=== PATIENT | male | born 1995 | race American Indian/Alaskan Native ===

== ENCOUNTER 2018-03-03 07:16 | Emergency (ER) | payer SELFPAY ==
[2018-03-03] MEDS ORDERED: TORADOL IV ONE (08:05)
[2018-03-03] MEDS ORDERED: NACL 0.9% 1000 ML 1,000 ML IV ONE (08:05)
[2018-03-03 08:08] LABS: Basophils # (Auto) 0.1 K/mm3 (0.0-0.1); Basophils % (Auto) 0.4 % (0.0-1.8); Eosinophils % (Auto) 0.3 % (0.0-4.3); Hematocrit 48.5 % (35.5-45.6); Hemoglobin 16.8 gm/dl (11.8-15.2); Lymphocytes % (Auto) 12.8 % (13.4-35.0); Mean Corpuscular HGB Conc 35 % (32-34); Mean Corpuscular Hemoglobin 28 pg (28-32); Mean Corpuscular Volume 82 fl (84-94); Monocytes # (Auto) 0.8 K/mm3 (0.0-0.8); Monocytes % (Auto) 5.2 % (0.0-7.3); Platelet Count 416 K/mm3 (140-440); Red Blood Count 5.92 M/mm3 (3.65-5.03); Red Cell Distribution Width 13.5 % (13.2-15.2)
--- NOTE | 2018-03-03 08:08 | Emergency Department Report ---
Chief Complaint: Abdominal Pain Stated Complaint: STOMACH PAINS Time Seen by Provider: 03/03/18 08:07 - HPI History of Present Illness: This is a 22-year-old male here report that he is having abdominal pain on and off for a while but he has not gone to the doctor. He could not give me a specific data follow along his been having the pain but reports the pain is crampy and it comes and goes. Patient reports that he has been having vomiting and diarrhea 3 days. He said he is able to care erich dean and saltine down. He said he has felt pain in often to his entire stomach. Patient said he can barely move and when I asked him where the pain he cannot pinpoint he is basically pointing to all of his abdomen. He reports that he has chills but no fever. No medication taken today. Pain is intermittent. He denies any medical problems and report he has not been to a doctor in years. Denies any blood in his stool. Denies any blood in his vomit. Denies any chest pain or shortness of breath. Denies any urinary burning, frequency or urgency. - ROS Review of Systems: Positive abdominal pain, positive diarrhea, positive nausea and vomiting and. Positive chills. Negative hematochezia, negative hematemesis. Negative urinary burning, frequency or urgency. Negative chest pain or shortness of breath. Negative hematuria, negative sore throat, negative headache - Exam Vital Signs: Vital Signs 03/03/18 07:23 Temperature 98.4 F Pulse Rate 108 H Respiratory 16 Rate Blood Pressure 153/95 O2 Sat by Pulse 99 Oximetry Physical Exam: Gen.: 22-year-old male well-nourished well-developed in no acute distress. Patient is nontoxic in appearance. abdomen: Patient reports tenderness to palpation around his periumbilical area. No guarding or rebound tenderness. No acute abdomen. Abdomen is soft. Normal bowel sounds. No CVA tenderness Lungs: clear to Auscultated bilaterally, no rhonchi wheezes or rales CV: Patient tachycardic at 108, regular MSE screening note: Focused history and physical exam performed. Due to findings the following was ordered: ED Medical Decision Making - Lab Data Result diagrams: 03/03/18 07:45 - Medical Decision Making This is a 22-year-old male here reports that he is having abdominal pain, nausea vomiting and diarrhea over a period to time but he is having vomiting and diarrhea over 3 days consistently. He is also reporting chills. Patient does not have a primary care Assessment/plan 1: Abdominal pain-patient given Toradol 30 mg IV. CBC with elevated white count and other labs are pending. Patient for CT scan of the abdomen and pelvis with IV contrast. 2: Nausea vomiting and diarrhea-patient started on IV fluid normal saline 1 L, Zofran IV. Patient is stable, vital signs stable except she is tachycardic at 108, afebrile. Patient to be seen by Yesenia I spoke with Dr. Slade regarding patient labs and his presentation on my physical findings ED Disposition for MSE Condition: Stable Referrals: PRIMARY CARE, [Primary Care Provider] - 3-5 Days
[2018-03-03 08:23] LABS: Alanine Aminotransferase 35 units/L (7-56); Albumin 5.3 g/dL (3.9-5); BUN/Creatinine Ratio 19; Blood Urea Nitrogen 21 mg/dL (9-20); Calcium 10.1 mg/dL (8.4-10.2); Hemolysis Index 7; Lipase 11 units/L (13-60)
[2018-03-03] MEDS ORDERED: ZOFRAN IV ONE (08:28)
[2018-03-03] MEDS ORDERED: ZOFRAN IV NR (09:00)
--- NOTE | 2018-03-03 09:28 | Cat Scan Report ---
FINAL REPORT EXAM: CT ABDOMEN PELVIS W CON HISTORY: abdominal pain with N/V, chills COMPARISON: None. TECHNIQUE: Multiple contiguous axial images were obtained from the lung bases to the pubic symphysis after administration of IV contrast. Reformatted and coronal images available for review. FINDINGS: Lung bases: Normal. Visualized heart and mediastinum: Normal. Liver: Normal. Spleen: Normal. Pancreas: Normal. Gallbladder and Biliary Tree: No calcified gallstones. No biliary ductal dilatation. Adrenal glands: Normal. Kidneys: Symmetric enhancement to both kidneys. No hydronephrosis. Bladder: Normal. Pelvic organs: Normal. Bowel: A portion of the stomach is herniated through the anterior abdominal wall (series 2, image 59). There is no evidence of incarceration or strangulation, however there is a very small hernia neck measuring approximately 6 millimeters. There is some mild stranding of the antrum of the stomach. There is no evidence of obstruction. The small bowel is normal in appearance. The appendix is normal. There is liquid contents of the stool, compatible with history of diarrhea. Peritoneum: No significant mesenteric adenopathy. No free air or free fluid. Vasculature: Abdominal aorta is normal in caliber without evidence of aneurysm. Normal appearance of the portal venous system and the inferior vena cava. Bones and soft tissues: No suspicious osseous lesions. No acute fracture or dislocation. Ventral hernia containing a portion of the stomach is ascribed above. IMPRESSION: 1. Ventral hernia containing a portion of the stomach. No evidence of incarceration or strangulation, however there is a small hernia neck measuring approximately 6 millimeters. 2. Mild thickening of the antral wall of the stomach, which is nonspecific, but may represent irritation from gastritis or peptic ulcer disease. Recommend clinical correlation and consider endoscopy. 3. No evidence of bowel obstruction. Liquid contents stool, compatible with history of diarrhea.
[2018-03-03 09:39] LABS: Bacteria,Urine 1+ /HPF (Negative); Bilirubin,Urine NEG (Negative); Blood,Urine NEG (Negative); Color,Urine Amber (Yellow); Mucus,Urine 3+ /HPF; Urobilinogen,Urine < 2.0 mg/dL (<2.0)
--- NOTE | 2018-03-03 10:18 | Emergency Department Report ---
ED Abdominal Pain HPI - General Chief Complaint: Abdominal Pain Stated Complaint: STOMACH PAINS Time Seen by Provider: 03/03/18 08:07 Source: patient, family Mode of arrival: Ambulatory Limitations: No Limitations - History of Present Illness Initial Comments: This is a 22-year-old male here report that he is having abdominal pain on and off for a while but he has not gone to the doctor. He could not give me a specific data follow along his been having the pain but reports the pain is crampy and it comes and goes. Patient reports that he has been having vomiting and diarrhea 3 days. He is able to drink erich dean and saltine down. He said he has felt pain in often to his entire stomach. Patient said he can barely move . He is unable to pinpoint where his abdominal pain is. He reports that he has chills but no fever. No medication taken today. Pain is intermittent. He denies any medical problems and report he has not been to a doctor in years. Denies any blood in his stool. Denies any blood in his vomit. Denies any chest pain or shortness of breath. Denies any urinary burning, frequency or urgency. MD Complaint: abdominal pain, other (nausea ,vomiting and diarrhea) Onset/Timin -: month(s) (nausea started 3 days ago) Location: diffuse Radiation: none Migration to: no migration Severity: moderate Severity scale (0 -10): 5 Quality: cramping, aching Consistency: intermittent Improves With: nothing Worsens With: vomiting Context: other (unknown) Associated Symptoms: nausea, vomiting, diarrhea. denies: fever, chills, constipation, dysuria, hematemesis, hematochezia, melena, hematuria, anorexia, syncope Treatments Prior to Arrival: other ([id number] medication) - Related Data Previous Rx's Medication Instructions Recorded Last Taken Type Cephalexin [Keflex] 500 mg PO Q12H 7 Days #14 capsule 03/03/18 Unknown Rx Dicyclomine [Bentyl] 40 mg PO Q8H 3 Days #9 tablet 03/03/18 Unknown Rx Famotidine [Pepcid] 20 mg PO BID 30 Days #60 tablet 03/03/18 Unknown Rx Promethazine [Phenergan TAB] 25 mg PO Q6HR PRN #16 tab 03/03/18 Unknown Rx Allergies Allergy/AdvReac Type Severity Reaction Status Date / Time No Known Allergies Allergy Unverified 03/03/18 07:35 ED Review of Systems ROS: Stated complaint: STOMACH PAINS Other details as noted in HPI Constitutional: denies: chills, fever Eyes: denies: eye pain, eye discharge ENT: denies: ear pain, throat pain, congestion Respiratory: denies: cough, shortness of breath, SOB with exertion, SOB at rest , stridor, wheezing Cardiovascular: denies: chest pain, palpitations, edema, syncope Gastrointestinal: abdominal pain, nausea, diarrhea. denies: constipation, hematemesis, melena, hematochezia Genitourinary: denies: urgency, dysuria, frequency, hematuria, discharge, testicular pain, testicular mass Musculoskeletal: denies: back pain, joint swelling, arthralgia, myalgia Skin: denies: rash, lesions Neurological: denies: headache, weakness, numbness, paresthesias, vertigo ED Past Medical Hx - Past Medical History Previous Medical History?: No - Surgical History Past Surgical History?: No - Family History Family history: hypertension - Social History Smoking Status: Current Some Day Smoker Substance Use Type: None - Medications Home Medications: Home Medications Medication Instructions Recorded Confirmed Last Taken Type Cephalexin [Keflex] 500 mg PO Q12H 7 Days #14 capsule 03/03/18 Unknown Rx Dicyclomine [Bentyl] 40 mg PO Q8H 3 Days #9 tablet 03/03/18 Unknown Rx Famotidine [Pepcid] 20 mg PO BID 30 Days #60 tablet 03/03/18 Unknown Rx Promethazine [Phenergan TAB] 25 mg PO Q6HR PRN #16 tab 03/03/18 Unknown Rx ED Physical Exam - General Limitations: No Limitations General appearance: alert, in no apparent distress - Head Head exam: Present: atraumatic, normocephalic, normal inspection - Eye Eye exam: Present: normal appearance, PERRL, EOMI Pupils: Present: normal accommodation - ENT ENT exam: Present: normal exam, normal orophraynx, mucous membranes moist, TM's normal bilaterally, normal external ear exam - Neck Neck exam: Present: normal inspection, full ROM. Absent: tenderness, lymphadenopathy - Respiratory Respiratory exam: Present: normal lung sounds bilaterally. Absent: respiratory distress, wheezes, rales, rhonchi, stridor, chest wall tenderness, accessory muscle use, decreased breath sounds, prolonged expiratory - Cardiovascular Cardiovascular Exam: Present: normal rhythm, tachycardia, normal heart sounds. Absent: systolic murmur, diastolic murmur - GI/Abdominal GI/Abdominal exam: Present: soft, tenderness (periumbilical area), normal bowel sounds, hernia. Absent: distended, guarding, rebound, rigid, organomegaly, mass , bruit, pulsatile mass - Extremities Exam Extremities exam: Present: normal inspection, full ROM, normal capillary refill , other (No cce. + 2 pulses in all extremities, no neurovascular compromise). Absent: tenderness, pedal edema, joint swelling, calf tenderness - Back Exam Back exam: Present: normal inspection, full ROM, other (ambulates without any difficulties). Absent: tenderness, CVA tenderness (R), CVA tenderness (L), muscle spasm, paraspinal tenderness, vertebral tenderness, rash noted - Neurological Exam Neurological exam: Present: alert, oriented X3, normal gait, reflexes normal. Absent: motor sensory deficit - Psychiatric Psychiatric exam: Present: normal affect, normal mood - Skin Skin exam: Present: warm, dry, intact, normal color. Absent: rash ED Course Vital Signs 03/03/18 03/03/18 07:23 12:06 Temperature 98.4 F 98.4 F Pulse Rate 108 H 72 Respiratory 16 18 Rate Blood Pressure 153/95 Blood Pressure 135/76 [Left] O2 Sat by Pulse 99 97 Oximetry Vital Signs 03/03/18 07:23 Temperature 98.4 F Pulse Rate 108 H Respiratory 16 Rate Blood Pressure 153/95 O2 Sat by Pulse 99 Oximetry - Reevaluation(s) Reevaluation #1: 03/03/18 09:20 She received Toradol 30 mg IV for abdominal pain, Zofran 8 mg IV for nausea and vomiting and 1 L of normal saline. Upon reevaluation he reports his pain is better and he is no longer nauseated. Still awaiting CT scan results. Reevaluation #2: 03/03/18 11:[address] scan is back and I discussed results with him. He is still having some periumbilical pain so patient was given Bentyl 40 mg by mouth, lidocaine with Maalox 15 mL each part by mouth ED Medical Decision Making - Lab Data Result diagrams: 03/03/18 07:45 03/03/18 07:45 Lab Results 03/03/18 03/03/18 03/03/18 Range/Units 07:45 07:45 07:59 WBC 15.7 H (4.5-11.0) K/mm3 RBC 5.92 H (3.65-5.03) M/mm3 Hgb 16.8 H (11.8-15.2) gm/dl Hct 48.5 H (35.5-45.6) % MCV 82 L (84-94) fl MCH 28 (28-32) pg MCHC 35 H (32-34) % RDW 13.5 (13.2-15.2) % Plt Count 416 (140-440) K/mm3 Lymph % (Auto) 12.8 L (13.4-35.0) % Henderson % (Auto) 5.2 (0.0-7.3) % Eos % (Auto) 0.3 (0.0-4.3) % Baso % (Auto) 0.4 (0.0-1.8) % Lymph # 2.0 (1.2-5.4) K/mm3 Henderson # 0.8 (0.0-0.8) K/mm3 Eos # 0.0 (0.0-0.4) K/mm3 Baso # 0.1 (0.0-0.1) K/mm3 Seg Neutrophils % 81.3 H (40.0-70.0) % Seg Neutrophils # 12.8 H (1.8-7.7) K/mm3 Sodium 137 (137-145) mmol/L Potassium 4.4 (3.6-5.0) mmol/L Chloride 104.2 (98-107) mmol/L Carbon Dioxide 17 L (22-30) mmol/L Anion Gap 20 mmol/L BUN 21 H (9-20) mg/dL Creatinine 1.1 (0.8-1.5) mg/dL Estimated GFR > 60 ml/min BUN/Creatinine Ratio 19 % Glucose 152 H (75-100) mg/dL Calcium 10.1 (8.4-10.2) mg/dL Total Bilirubin 1.30 H (0.1-1.2) mg/dL AST 15 (5-40) units/L ALT 35 (7-56) units/L Alkaline Phosphatase 63 (35-129) units/L Total Protein 9.4 H (6.3-8.2) g/dL Albumin 5.3 H (3.9-5) g/dL Albumin/Globulin Ratio 1.3 % Lipase 11 L (13-60) units/L Urine Color Alexandra (Yellow) Urine Turbidity Cloudy (Clear) Urine pH 5.0 (5.0-7.0) Ur Specific [place] 1.029 (1.003-1.030) Urine Protein 100 mg/dl (Negative) mg/dL Urine Glucose (UA) Neg (Negative) mg/dL Urine Ketones Neg (Negative) mg/dL Urine Blood Neg (Negative) Urine Nitrite Neg (Negative) Urine Bilirubin Neg (Negative) Urine Urobilinogen < 2.0 (<2.0) mg/dL Ur Leukocyte Esterase Neg (Negative) Urine WBC (Auto) 43.0 H (0.0-6.0) /HPF Urine RBC (Auto) 7.0 (0.0-6.0) /HPF U Epithel Cells (Auto) 3.0 (0-13.0) /HPF Urine Bacteria (Auto) 1+ (Negative) /HPF Urine Mucus 3+ /HPF Urine culture sent - Radiology Data Radiology results: report reviewed They show CT scan of the abdomen and pelvis with IV contrast which was dictated by radiologist and report reviewed by myself. Please see report details below. 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 TECHNIQUE: Multiple contiguous axial images were obtained from the lung bases to the pubic symphysis after administration of IV contrast. Reformatted and coronal images available for review. FINDINGS: Lung bases: Normal. Visualized heart and mediastinum: Normal. Liver: Normal. Spleen: Normal. Pancreas: Normal. Gallbladder and Biliary Tree: No calcified gallstones. No biliary ductal dilatation. Adrenal glands: Normal. Kidneys: Symmetric enhancement to both kidneys. No hydronephrosis. Bladder: Normal. Pelvic organs: Normal. Bowel: A portion of the stomach is herniated through the anterior abdominal wall (series 2, image 59). There is no evidence of incarceration or strangulation, however there is a very small hernia neck measuring approximately 6 millimeters. There is some mild stranding of the antrum of the stomach. There is no evidence of obstruction. The small bowel is normal in appearance. The appendix is normal. There is liquid contents of the stool, compatible with history of diarrhea. Peritoneum: No significant mesenteric adenopathy. No free air or free fluid. Vasculature: Abdominal aorta is normal in caliber without evidence of aneurysm. Normal appearance of the portal venous system and the inferior vena cava. Bones and soft tissues: No suspicious osseous lesions. No acute fracture or dislocation. Ventral hernia containing a portion of the stomach is ascribed above. IMPRESSION: 1. Ventral hernia containing a portion of the stomach. No evidence of incarceration or strangulation, however there is a small hernia neck measuring approximately 6 millimeters. 2. Mild thickening of the antral wall of the stomach, which is nonspecific, but may represent irritation from gastritis or peptic ulcer disease. Recommend clinical correlation and consider endoscopy. 3. No evidence of bowel obstruction. Liquid contents stool, compatible with history of diarrhea. Transcribed By: CECI Dictated By: CINTHIA VILLAFANA MD Electronically Authenticated By: CINTHIA VILLAFANA MD Signed Date/Time: 03/03/18926 DD/ 6 TD/TT: 03/03/18926 - Medical Decision Making I collaborated with Dr. Samayoa who is the attending physician and patient presentation, laboratory findings and treatment plan. This is a 22-year-old male here with abdominal pain and studies been having it for a while but has visiting doctor. He is also complaining of nausea vomiting with some diarrhea. Nausea vomiting diarrhea started a couple days ago but abdominal pain has been on and off for a few months. Labs: CBC shows elevation in white count and hemoconcentration with bacterial shift to the left otherwise stable. CMP stable with some minor abnormalities. Lipase is normal. Urinalysis cloudy, positive protein, positive white cells and bacteria. Positive mucous otherwise stable. urine culture sent. CT scan of the abdomen and pelvis with IV contrast: Gen. herniated is not incarcerated or strangulated, gastritis and high suspicion for peptic ulcer disease and recommended in patient to have endoscopy, no evidence of bowel obstruction, liquid contents stool. Please see detailed report on the radiology section. Assessment/plan 1: Abdominal pain-patient given Toradol 30 mg IV which relieved his pain and his pain came back so he was given Bentyl 40 mg by mouth for relief of pain. 2: Gastritis suspicious for peptic ulcer disease-referral to wine maker for endoscopically. Patient states given Maalox/lidocaine 15 mL each parts with positive relief. And will be sent home on Pepcid. 3: Nausea vomiting and diarrhea-patient given IV fluid normal saline 1 L, Zofran 8 mg IV for nausea with positive relief. Patient will be sent home on nausea medication 4: Ventral HERNIA-stable per CT scan. Referral to surgery 5 :cystitis and hematuria-prescription for Keflex I educated patient on his lab results, CT scan results, diagnoses, medication and needs a follow-up of multiple referrals given in his discharge instruction paperwork. I counseled him on diet to prevent flare up of gastritis and also to prevent diarrhea. Patient able to tolerate oral fluids in the emergency room prior to discharge. Nausea vomiting diarrhea resolved. Abdominal pain has been resolved. Patient to follow-up with Dr. Sneed's general surgeon for ventral hernia, wine maker for gastritis and suspicion for peptic ulcer disease and also with primary care in 2-3 days. He voiced understanding of discharge instruction. Patient discharged home with prescription for Bentyl, Phenergan, Keflex and Pepcid. - Differential Diagnosis pancreatitis, GBD, liver D, ulcer, appendicitis, colitis, enteritis and UTI Critical care attestation.: If time is entered above; I have spent that time in minutes in the direct care of this critically ill patient, excluding procedure time. ED Disposition Clinical Impression: Ventral hernia without obstruction or gangrene, Nausea vomiting and diarrhea, Peptic ulcer disease Abdominal pain Qualifiers: Abdominal location: periumbilical Qualified Code(s): R10.33 - Periumbilical pain Gastritis Qualifiers: Gastritis type: unspecified gastritis Chronicity: unspecified Gastritis bleeding: without bleeding Qualified Code(s): K29.70 - Gastritis, unspecified, without bleeding UTI (urinary tract infection) Qualifiers: Urinary tract infection type: acute cystitis Hematuria presence: without hematuria Qualified Code(s): N30.00 - Acute cystitis without hematuria Disposition: DC-01 TO HOME OR SELFCARE Is pt being admited?: No Does the pt Need Aspirin: No Condition: Stable Instructions: Peptic Ulcer (ED), Gastritis (ED), Diet for Ulcers and Gastritis (ED), Acute Nausea and Vomiting (ED), Acute Diarrhea (ED), Ventral Hernia (ED), Abdominal Pain (ED), Nutrition Tips for Relief of Diarrhea (ED) Additional Instructions: Please follow up with wine maker for gastritis, abdominal pain, peptic ulcer disease. Follow-up with primary care doctor in 2 days. Since he do not have a primary care doctor he can follow up with [facility]. He have an abdominal hernia refer to as ventral hernia and he will need to follow-up with surgeon. See referral and discharge instruction paperwork Take Phenergan for nausea and/or vomiting but please do not drive or operate heavy machinery while taking this medication as it causes drowsiness Take Bentyl for abdominal discomfort Take Pepcid for gastritis/stomach ulcer Take Keflex for urinary tract infection Avoid spicy food and carbonated beverages, disease food can increase her stomach pain and cause to have bleeding. If you develop bleeding from the rectal area or in stool, bloody vomit or vomiting blood, fever and or chills, rigid and increasing pain to abdomen, generalized weakness, dizziness, increase and heart rates, please return to the emergency room NANCY Please drink plenty of water Please avoid medications such as Motrin/ibuprofen, aspirin, Advil, naproxen and any other medication that may cause bleeding as this can cause your ulcerative bleed. Prescriptions: Cephalexin [Keflex] 500 mg PO Q12H 7 Days #14 capsule Dicyclomine [Bentyl] 40 mg PO Q8H 3 Days #9 tablet Famotidine [Pepcid] 20 mg PO BID 30 Days #60 tablet Promethazine [Phenergan TAB] 25 mg PO Q6HR PRN #16 tab PRN Reason: Nausea Referrals: AYESHA ANDRADE MD [Primary Care Provider] - 03/05/18 [facility] [Outside] - 03/05/18 [facility] [Provider Group] - 2-3 Days ANUEL SNEED MD [Staff Physician] - 2-3 Days Forms: Accompanied Note, Work/School Release Form(ED)
[2018-03-03] MEDS ORDERED: ZOFRAN ODT PO ONE (10:38)
[2018-03-03] MEDS ORDERED: BENTYL PO ONE (10:38)
[2018-03-03] MEDS ORDERED: ALUM-MAG HYDROX-SIMETH 200-200-20MG/5ML PO ONE (10:39)
[2018-03-03] MEDS ORDERED: LIDOCAINE VISCOUS 2% PO ONE (10:39)
[2018-03-03 12:08] VITALS: BP 135/76
== END 2018-03-03 12:06 | disposition home or self-care (01) ==
LOC: ED 07:16
DX: N30.00 Acute cystitis without hematuria (principal); K29.70 Gastritis, unspecified, without bleeding; K43.9 Ventral hernia without obstruction or gangrene; K27.9 Peptic ulcer, site unspecified, unspecified as acute or chronic, without hemorrhage or perforation; F17.200 Nicotine dependence, unspecified, uncomplicated
CPT/HCPCS: 36415; 74177; 80053; 81001; 83690; 85025; 87086; 96361; 96374; 96375; 99284; J1885; J2405; J7030; Q9967; Q0162